=== PATIENT | male | born 1975 | race African-American/Black ===

== ENCOUNTER 2018-05-11 20:44 | Emergency (ER) | payer MEDICAID ==
[~2018-05-11] VITALS: Ht 188 cm; Wt 100.0 kg
[~2018-05-11 20:44] MED LIST: ABILIFY; ALBUTEROL; BENZ1TAB7; DEPSPR; ZIPR20CA2; depakote; geodon
[2018-05-11] MEDS ORDERED: PREDNISONE 20MG TABLET PO ONE (21:15)
[2018-05-11 22:25] VITALS: BP 128/75
== END 2018-05-11 22:58 | disposition home or self-care (01) ==
LOC: ER 20:44
DX: T78.40XA Allergy, unspecified, initial encounter (principal); X58.XXXA Exposure to other specified factors, initial encounter; E78.00 Pure hypercholesterolemia, unspecified; I10 Essential (primary) hypertension; Z88.8 Allergy status to other drugs, medicaments and biological substances
CPT/HCPCS: 99283; J7512

== ENCOUNTER 2018-11-27 21:10 | Emergency (ER) | payer MEDICAID ==
[~2018-11-27] VITALS: Ht 198.1 cm; Wt 123.0 kg
[2018-11-27] MEDS ORDERED: HYDROCODONE/ACETAMINOPHEN 5/325MG TABLET PO ONE (23:00)
[2018-11-28 00:44] VITALS: BP 139/88
== END 2018-11-28 00:45 | disposition home or self-care (01) ==
LOC: ER 21:10
DX: S00.512A Abrasion of oral cavity, initial encounter (principal); R68.84 Jaw pain; S09.92XA Unspecified injury of nose, initial encounter; G40.909 Epilepsy, unspecified, not intractable, without status epilepticus; E78.00 Pure hypercholesterolemia, unspecified; J45.909 Unspecified asthma, uncomplicated; I10 Essential (primary) hypertension; F31.9 Bipolar disorder, unspecified; F17.210 Nicotine dependence, cigarettes, uncomplicated; Z88.8 Allergy status to other drugs, medicaments and biological substances; Y04.0XXA Assault by unarmed brawl or fight, initial encounter; Y93.89 Activity, other specified; Y92.048 Other place in boarding-house as the place of occurrence of the external cause
CPT/HCPCS: 70486; 99284

== ENCOUNTER 2019-02-02 20:40 | Inpatient (IN) | payer BC, MEDICAID ==
[~2019-02-02] VITALS: Ht 198.1 cm; Wt 192.8 kg
[~2019-02-02 20:40] MED LIST changes: -DEPSPR; +DEPSPR PO
[2019-02-02] MEDS ORDERED: MORPHINE SULFATE 4 MG/ML CPJ (NOT FOR IM USE) IV STA (21:26)
[2019-02-02 21:49] LABS: BASOPHILS % 0.9 % (0.0-2.0); EOSINOPHILS % 2.5 % (0.0-5.0); HEMATOCRIT. 45.8 % (42.0-52.0); HEMOGLOBIN. 15.6 g/dL (14.0-18.0); LYMPHOCYTES % 38.8 % (20.0-50.0); MEAN CORPUSCULAR HEMOGLOBIN 28.6 pg (28.0-32.0); MEAN CORPUSCULAR VOLUME 84.2 fL (80.0-94.0); MONOCYTES % 14.2 % (2.0-8.0); NEUTROPHILS % 43.6 % (40.0-76.0); PLATELET 155 x1000/uL (130-400); RED BLOOD CELL COUNT 5.44 mill/uL (4.7-6.1); RED CELL DISTRIBUTION WIDTH 14.5 % (11.6-14.6)
[2019-02-02 21:55] LABS: CLARITY URINE CLEAR (CLEAR); COLOR URINE DARK YELLOW (YELLOW); KETONES URINE TRACE (NEGATIVE); LEUKOCYTE ESTERASE URINE NEGATIVE (NEGATIVE); NITRITE URINE NEGATIVE (NEGATIVE); OCCULT BLOOD URINE NEGATIVE (NEGATIVE); PH URINE 5.5 (4.5-8.0); PROTEIN URINE NEGATIVE (NEGATIVE); SPECIFIC GRAVITY URINE 1.032 (1.005-1.030)
[2019-02-02 21:56] LABS: CHLORIDE 107 mEq/L (98-107)
[2019-02-02 21:58] LABS: PROTHROMBIN TIME 10.3 sec (9.6-11.0)
[2019-02-02] MEDS ORDERED: DIPHENHYDRAMINE 50MG/ML VIAL IV ONE (23:30)
[2019-02-02] MEDS ORDERED: METHYLPREDNISOLONE SOD SUCC 125 MG/2 ML VIAL IV ONE (23:30)
[2019-02-02] MEDS ORDERED: FAMOTIDINE 20MG/2ML VIAL IV ONE (23:30)
[2019-02-03] VITALS (8 sets, daily range): BP systolic 118–141; BP diastolic 64–84
[2019-02-03] MEDS ORDERED: HYDRALAZINE 20MG/ML VIAL IV ONE (01:45)
[2019-02-03] MEDS ORDERED: IPRATROPIUM/ALBUTEROL 0.5-3(2.5)MG/3ML NEB HHN PRN (05:15)
[2019-02-03] MEDS ORDERED: CLONIDINE 0.1MG TABLET PO PRN (05:15)
[2019-02-03] MEDS ORDERED: DIPHENHYDRAMINE 25MG CAPSULE PO PRN (05:15)
[2019-02-03] MEDS: METHYLPREDNISOLONE SOD SUCC 40 MG/ML VIAL IV SCH ×3 (05:55→22:07)
[2019-02-03] MEDS ORDERED: FAMOTIDINE 20MG/2ML VIAL IV SCH (09:00)
[2019-02-03 09:03] LABS: BASOPHILS % 0.3 % (0.0-2.0); EOSINOPHILS % 0.1 % (0.0-5.0); HEMATOCRIT. 47.1 % (42.0-52.0); HEMOGLOBIN. 15.4 g/dL (14.0-18.0); LYMPHOCYTES % 16.2 % (20.0-50.0); MEAN CORPUSCULAR HEMOGLOBIN 27.7 pg (28.0-32.0); MEAN CORPUSCULAR VOLUME 84.6 fL (80.0-94.0); MEAN PLATELET VOLUME 10.1 fl (7.4-10.4); MONOCYTES % 1.1 % (2.0-8.0); NEUTROPHILS % 82.3 % (40.0-76.0); PLATELET 144 x1000/uL (130-400); RED BLOOD CELL COUNT 5.57 mill/uL (4.7-6.1); RED CELL DISTRIBUTION WIDTH 14.5 % (11.6-14.6)
[2019-02-03 09:23] LABS: CHLORIDE 108 mEq/L (98-107)
[2019-02-03 09:32] LABS: LDL CHOLESTEROL 86 mg/dL (5-100)
[2019-02-03 09:34] LABS: HDL CHOLESTEROL 34 mg/dL (40-59)
[2019-02-03 10:32] LABS: HEPATITIS B SURFACE ANTIGEN NEGATIVE
[2019-02-03 11:02] LABS: HEPATITIS A AB IGM NEGATIVE (NEGATIVE)
[2019-02-03] MEDS ORDERED: PNEUMOCOCCAL 23-VAL P-SAC VAC 0.5 ML IM ONE (12:00)
[2019-02-03] MEDS: SUCRALFATE 1 G/10 ML UDC PO SCH ×3 (14:47→22:06)
[2019-02-03] MEDS ORDERED: PANTOPRAZOLE 40MG DR TABLET PO SCH (21:00)
[2019-02-03] MEDS ORDERED: DIVALPROEX SODIUM 1500 MG PO SCH (21:00)
[2019-02-03] MEDS: PANTOPRAZOLE SODIUM 40 MG/VIAL IV SCH (22:05)
[2019-02-03] MEDS: BENZTROPINE MESYLATE 1MG TABLET PO SCH (22:06)
[2019-02-03] MEDS: DIVALPROEX SODIUM 500MG ER TABLET PO SCH (22:07)
[2019-02-04] VITALS: BP 137/77
[2019-02-04 04:00] VITALS: BP 146/86
[2019-02-04 04:13] LABS: *AMPHETAMINES SCREEN URINE NEGATIVE (NEGATIVE); *BARBITURATES SCREEN URINE NEGATIVE (NEGATIVE); *BENZODIAZEPINES SCREEN URINE NEGATIVE (NEGATIVE); *COCAINE SCREEN URINE NEGATIVE (NEGATIVE); CANNABINOID URINE SCREEN NEGATIVE (NEGATIVE); METHADONE URINE SCREEN NEGATIVE (NEGATIVE); OPIATES URINE SCREEN PRESUMTIVE POSITIVE (NEGATIVE); PHENCYCLIDINE URINE SCREEN NEGATIVE (NEGATIVE)
[2019-02-04] MEDS: METHYLPREDNISOLONE SOD SUCC 40 MG/ML VIAL IV SCH ×2 (06:00→15:59)
[2019-02-04] MEDS: SUCRALFATE 1 G/10 ML UDC PO SCH ×4 (06:18→20:32)
[2019-02-04 07:39] LABS: BASOPHILS % 0.2 % (0.0-2.0); HEMATOCRIT. 42.4 % (42.0-52.0); HEMOGLOBIN. 13.8 g/dL (14.0-18.0); MEAN CORPUSCULAR HEMOGLOBIN 27.2 pg (28.0-32.0); MEAN CORPUSCULAR VOLUME 83.5 fL (80.0-94.0); MEAN PLATELET VOLUME 10.3 fl (7.4-10.4); MONOCYTES % 4.9 % (2.0-8.0); NEUTROPHILS % 84.9 % (40.0-76.0); PLATELET 171 x1000/uL (130-400); RED BLOOD CELL COUNT 5.08 mill/uL (4.7-6.1); RED CELL DISTRIBUTION WIDTH 14.9 % (11.6-14.6)
[2019-02-04 07:47] LABS: PARTIAL THROMBOPLASTIN TIME 24.7 sec (23.4-31.0); PROTHROMBIN TIME 10.7 sec (9.6-11.0)
[2019-02-04 07:52] LABS: CHLORIDE 105 mEq/L (98-107)
[2019-02-04 07:55] VITALS: BP 156/74
[2019-02-04] MEDS: PANTOPRAZOLE SODIUM 40 MG/VIAL IV SCH ×2 (08:42→20:32)
[2019-02-04] MEDS ORDERED: MIDAZOLAM HCL 5 MG/5 ML VIAL ONE (11:21)
[2019-02-04] MEDS ORDERED: MIDAZOLAM HCL 5 MG/5 ML VIAL IV PRN (11:22)
[2019-02-04] MEDS ORDERED: FENTANYL CITRATE/PF 50MCG/ML 2ML VIAL ONE ×2 (11:23→11:29)
[2019-02-04] MEDS ORDERED: FENTANYL CITRATE/PF 50MCG/ML 2ML VIAL IV PRN (11:24)
[2019-02-04] MEDS ORDERED: EPINEPHRINE 0.1MG/ML (1:10,000) 10ML SYR ONE (11:28)
[2019-02-04] MEDS ORDERED: SIMETHICONE 40 MG/0.6 ML 30ML ONE (11:57)
[2019-02-04] MEDS ORDERED: SUCRALFATE 1 G/10 ML UDC PO SCH (12:20)
[2019-02-04 12:30] VITALS: BP 150/90
[2019-02-04] MEDS ORDERED: BACTERIOSTATIC SODIUM CHLORIDE 0.9% 30ML VIAL IJ ONE (12:55)
[2019-02-04 16:21] VITALS: BP 142/78
[2019-02-04 20:00] VITALS: BP 135/85
[2019-02-04] MEDS: BENZTROPINE MESYLATE 1MG TABLET PO SCH (20:32)
[2019-02-04] MEDS: DIVALPROEX SODIUM 500MG ER TABLET PO SCH (20:32)
[2019-02-04 21:00] LABS: HEMATOCRIT 42.5 % (42.0-52.0)
[2019-02-05] VITALS: BP 155/86
[2019-02-05 01:37] LABS: HEMATOCRIT 43.3 % (42.0-52.0); HEMOGLOBIN 14.3 g/dL (14.0-18.0)
[2019-02-05 04:00] VITALS: BP 139/81
[2019-02-05 05:56] LABS: BASOPHILS % 0.5 % (0.0-2.0); HEMATOCRIT. 42.9 % (42.0-52.0); HEMOGLOBIN. 14.3 g/dL (14.0-18.0); LYMPHOCYTES % 10.8 % (20.0-50.0); MEAN CORPUSCULAR HEMOGLOBIN 27.6 pg (28.0-32.0); MEAN PLATELET VOLUME 10.5 fl (7.4-10.4); MONOCYTES % 7.1 % (2.0-8.0); NEUTROPHILS % 81.6 % (40.0-76.0); PLATELET 171 x1000/uL (130-400); RED BLOOD CELL COUNT 5.16 mill/uL (4.7-6.1); RED CELL DISTRIBUTION WIDTH 14.8 % (11.6-14.6)
[2019-02-05 06:10] LABS: CHLORIDE 102 mEq/L (98-107)
[2019-02-05] MEDS: SUCRALFATE 1 G/10 ML UDC PO SCH ×3 (06:22→17:24)
[2019-02-05 08:00] VITALS: BP 156/74
[2019-02-05 11:30] LABS: HEMATOCRIT 44.4 % (42.0-52.0); HEMOGLOBIN 14.6 g/dL (14.0-18.0)
[2019-02-05 12:30] VITALS: BP 144/90
[2019-02-05] MEDS ORDERED: SUCR1TAB30 MT (14:24)
[2019-02-05] MEDS ORDERED: PANT40TA4 MT (14:24)
[2019-02-05 15:30] VITALS: BP 134/92
[2019-02-05 16:00] VITALS: BP 134/92
== END 2019-02-05 19:08 | disposition home or self-care (01) | DRG 241 ==
LOC: ER 20:40 → 6WST 02-03 00:34 → ENRESERV 02-03 01:09
PROVIDERS: ADMIT Internal Medicine; ATTEND Internal Medicine
PROC: 0DB68ZZ Excision of Stomach, Via Natural or Artificial Opening Endoscopic (ICD-10-PCS; principal; 2019-02-04)
PROC: 0W3P8ZZ Control Bleeding in Gastrointestinal Tract, Via Natural or Artificial Opening Endoscopic (ICD-10-PCS; 2019-02-04)
PROC: 0DB68ZX Excision of Stomach, Via Natural or Artificial Opening Endoscopic, Diagnostic (ICD-10-PCS; 2019-02-04)
DX: K29.71 Gastritis, unspecified, with bleeding (principal); E11.65 Type 2 diabetes mellitus with hyperglycemia; E66.9 Obesity, unspecified; E78.00 Pure hypercholesterolemia, unspecified; J45.909 Unspecified asthma, uncomplicated; J33.8 Other polyp of sinus; F31.9 Bipolar disorder, unspecified; G40.909 Epilepsy, unspecified, not intractable, without status epilepticus; R74.0 Nonspecific elevation of levels of transaminase and lactic acid dehydrogenase [LDH]; I10 Essential (primary) hypertension; Z82.49 Family history of ischemic heart disease and other diseases of the circulatory system; Z82.5 Family history of asthma and other chronic lower respiratory diseases; Z71.3 Dietary counseling and surveillance; Z68.42 Body mass index [BMI] 45.0-49.9, adult
CPT/HCPCS: 36415; 71045; 74176; 76700; 80048; 80061; 80076; 80165; 80305; 81003; 82248; 83036; 83735; 83880; 84145; 85014; 85018; 86705; 86709; 86803; 87340; 88305; 88313; 90732; 93306; 93970; 96374; 99152; 99285; C9113; J0360; J1200; J2250; J2270; J2920; J2930; J3010; J3490; G0500

== ENCOUNTER 2019-02-06 22:46 | Emergency (ER) | payer MEDICAID ==
[~2019-02-06] VITALS: Ht 198.1 cm; Wt 160.0 kg
[~2019-02-06 22:46] MED LIST changes: -ABILIFY; -ALBUTEROL; +PANT40TA4 MT; +SUCR1TAB30 MT; -ZIPR20CA2; -depakote; -geodon
[2019-02-07] MEDS ORDERED: ONDANSETRON HCL 4MG/2ML INJ IV ONE (01:00)
[2019-02-07] MEDS ORDERED: FAMOTIDINE 20MG/2ML VIAL IV SCH (01:00)
[2019-02-07] MEDS ORDERED: SODIUM CHLORIDE 0.9% 1,000 ML IV ONE (01:00)
[2019-02-07 01:08] LABS: HEMATOCRIT. 44.7 % (42.0-52.0); HEMOGLOBIN. 14.9 g/dL (14.0-18.0); MEAN CORPUSCULAR HEMOGLOBIN 27.7 pg (28.0-32.0); MEAN CORPUSCULAR VOLUME 83.1 fL (80.0-94.0); MEAN PLATELET VOLUME 9.3 fl (7.4-10.4); PLATELET 167 x1000/uL (130-400); RED BLOOD CELL COUNT 5.37 mill/uL (4.7-6.1); RED CELL DISTRIBUTION WIDTH 14.3 % (11.6-14.6)
[2019-02-07 01:14] LABS: CHLORIDE 105 mEq/L (98-107)
[2019-02-07 02:03] LABS: ATYPICAL LYMPHOCYTES 4; PLATELET ESTIMATE NORMAL
[2019-02-07 03:17] LABS: CLARITY URINE CLEAR (CLEAR); COLOR URINE YELLOW (YELLOW); KETONES URINE TRACE (NEGATIVE); LEUKOCYTE ESTERASE URINE NEGATIVE (NEGATIVE); NITRITE URINE NEGATIVE (NEGATIVE); OCCULT BLOOD URINE NEGATIVE (NEGATIVE); PROTEIN URINE NEGATIVE (NEGATIVE); SPECIFIC GRAVITY URINE 1.027 (1.005-1.030)
[2019-02-07 05:00] VITALS: BP 139/73
== END 2019-02-07 04:50 | disposition home or self-care (01) ==
LOC: ER 22:46
DX: R10.84 Generalized abdominal pain (principal); J45.909 Unspecified asthma, uncomplicated; Z79.899 Other long term (current) drug therapy; Z88.4 Allergy status to anesthetic agent
CPT/HCPCS: 36415; 80053; 81003; 85025; 96361; 96374; 96375; 99283; J2405; J3490; J7030; J7040; Z7610

== ENCOUNTER 2019-03-21 10:48 | Emergency (ER) | payer MEDICAID ==
[~2019-03-21] VITALS: Ht 198.1 cm; Wt 160.0 kg
[~2019-03-21 10:48] MED LIST changes: +AMLO5TAB88 PO; -DEPSPR PO; +VALP250C PO
[2019-03-21 12:22] LABS: CLARITY URINE CLEAR (CLEAR); COLOR URINE YELLOW (YELLOW); KETONES URINE TRACE (NEGATIVE); LEUKOCYTE ESTERASE URINE NEGATIVE (NEGATIVE); NITRITE URINE NEGATIVE (NEGATIVE); OCCULT BLOOD URINE NEGATIVE (NEGATIVE); PH URINE 5.5 (4.5-8.0); PROTEIN URINE NEGATIVE (NEGATIVE); SPECIFIC GRAVITY URINE 1.027 (1.005-1.030)
[2019-03-21] MEDS ORDERED: ACETAMINOPHEN 325MG TABLET PO ONE (12:30)
[2019-03-21] MEDS ORDERED: KETOROLAC 15MG/ML VIAL IM ONE (12:30)
[2019-03-21 12:47] LABS: *AMPHETAMINES SCREEN URINE NEGATIVE (NEGATIVE); *BARBITURATES SCREEN URINE NEGATIVE (NEGATIVE); *BENZODIAZEPINES SCREEN URINE NEGATIVE (NEGATIVE)
[2019-03-21 12:48] LABS: *COCAINE SCREEN URINE NEGATIVE (NEGATIVE); CANNABINOID URINE SCREEN NEGATIVE (NEGATIVE); OPIATES URINE SCREEN NEGATIVE (NEGATIVE); PHENCYCLIDINE URINE SCREEN NEGATIVE (NEGATIVE)
[2019-03-21 12:51] LABS: METHADONE URINE SCREEN NEGATIVE (NEGATIVE)
[2019-03-21 12:52] LABS: BASOPHILS % 0.7 % (0.0-2.0); EOSINOPHILS % 0.8 % (0.0-5.0); HEMATOCRIT. 43.7 % (42.0-52.0); HEMOGLOBIN. 14.5 g/dL (14.0-18.0); LYMPHOCYTES % 27.7 % (20.0-50.0); MEAN CORPUSCULAR HEMOGLOBIN 27.9 pg (28.0-32.0); MEAN CORPUSCULAR VOLUME 84.2 fL (80.0-94.0); MEAN PLATELET VOLUME 9.8 fl (7.4-10.4); MONOCYTES % 13.9 % (2.0-8.0); NEUTROPHILS % 56.9 % (40.0-76.0); PLATELET 157 x1000/uL (130-400); RED BLOOD CELL COUNT 5.19 mill/uL (4.7-6.1)
[2019-03-21 12:58] LABS: CHLORIDE 110 mEq/L (98-107)
[2019-03-21 13:02] LABS: ETHANOL BLOOD < 10 mg/dL
[2019-03-22 15:30] VITALS: BP 154/97
== END 2019-03-22 18:58 | disposition home or self-care (01) ==
LOC: ER 10:48
DX: S16.1XXA Strain of muscle, fascia and tendon at neck level, initial encounter (principal); R45.851 Suicidal ideations; J45.909 Unspecified asthma, uncomplicated; I10 Essential (primary) hypertension; F31.9 Bipolar disorder, unspecified; F20.9 Schizophrenia, unspecified; E66.01 Morbid (severe) obesity due to excess calories; Z68.41 Body mass index [BMI] 40.0-44.9, adult; Z88.4 Allergy status to anesthetic agent; Z88.8 Allergy status to other drugs, medicaments and biological substances; Z79.899 Other long term (current) drug therapy; Z98.890 Other specified postprocedural states; Y08.89XA Assault by other specified means, initial encounter; Y93.89 Activity, other specified; Y92.89 Other specified places as the place of occurrence of the external cause; Y99.8 Other external cause status
CPT/HCPCS: 36415; 80053; 80305; 80307; 80320; 81003; 82962; 85025; 96372; 99284; J1885; G0480

== ENCOUNTER 2020-10-05 08:35 | Emergency (ER) | payer SELFPAY ==
[~2020-10-05] VITALS: Ht 180.3 cm; Wt 127.0 kg
[~2020-10-05 08:35] MED LIST changes: -PANT40TA4 MT; +PANT40TA51 MT
[2020-10-05] MEDS ORDERED: LEVETIRACETAM 1000MG PREMIX 100 ML IV ONE (09:00)
[2020-10-05] MEDS ORDERED: SODIUM CHLORIDE 0.9% 1,000 ML IV ONE (09:00)
[2020-10-05 09:40] LABS: HEMATOCRIT. 42.3 % (42.0-52.0); HEMOGLOBIN. 14.6 g/dL (14.0-18.0); MEAN CORPUSCULAR HEMOGLOBIN 28.7 pg (28.0-32.0); MEAN CORPUSCULAR VOLUME 83.2 fL (80.0-94.0); MEAN PLATELET VOLUME 9.8 fl (7.4-10.4); PLATELET 145 x1000/uL (130-400); RED BLOOD CELL COUNT 5.09 mill/uL (4.7-6.1); RED CELL DISTRIBUTION WIDTH 14.4 % (11.6-14.6)
[2020-10-05 09:41] LABS: CHLORIDE 112 mEq/L (98-107)
[2020-10-05 09:47] LABS: ETHANOL BLOOD < 10 mg/dL
[2020-10-05 09:50] LABS: VALPROIC ACID <3.0 ug/mL ug/mL (50-100)
[2020-10-05 09:53] LABS: CLARITY URINE CLEAR (CLEAR); COLOR URINE YELLOW (YELLOW); KETONES URINE TRACE (NEGATIVE); LEUKOCYTE ESTERASE URINE NEGATIVE (NEGATIVE); NITRITE URINE NEGATIVE (NEGATIVE); OCCULT BLOOD URINE NEGATIVE (NEGATIVE); PH URINE 6.5 (4.5-8.0); PROTEIN URINE NEGATIVE (NEGATIVE); SPECIFIC GRAVITY URINE 1.024 (1.005-1.030)
[2020-10-05 10:12] LABS: *AMPHETAMINES SCREEN URINE NEGATIVE (NEGATIVE); *BARBITURATES SCREEN URINE NEGATIVE (NEGATIVE); *BENZODIAZEPINES SCREEN URINE NEGATIVE (NEGATIVE); METHADONE URINE SCREEN NEGATIVE (NEGATIVE); OPIATES URINE SCREEN NEGATIVE (NEGATIVE)
[2020-10-05 10:13] LABS: CANNABINOID URINE SCREEN NEGATIVE (NEGATIVE); PHENCYCLIDINE URINE SCREEN NEGATIVE (NEGATIVE)
[2020-10-05 10:14] LABS: *COCAINE SCREEN URINE NEGATIVE (NEGATIVE)
[2020-10-05] MEDS ORDERED: DIVA500T3 MT (11:44)
[2020-10-05] MEDS ORDERED: DIVALPROEX SODIUM 500MG DR TABLET PO ONE (11:45)
[2020-10-05 11:49] LABS: PLATELET ESTIMATE NORMAL
[2020-10-05 11:50] VITALS: BP 143/81
== END 2020-10-05 12:20 | disposition home or self-care (01) ==
LOC: ER 08:35
DX: R56.9 Unspecified convulsions (principal); R79.89 Other specified abnormal findings of blood chemistry; J45.909 Unspecified asthma, uncomplicated; E11.9 Type 2 diabetes mellitus without complications; Z88.1 Allergy status to other antibiotic agents; Z88.8 Allergy status to other drugs, medicaments and biological substances; Z91.19 Patient's noncompliance with other medical treatment and regimen
CPT/HCPCS: 36415; 70450; 72125; 80053; 80165; 80305; 80320; 81003; 85025; 93005; 96365; 99285; J1953; J7030; G0480

== ENCOUNTER 2021-01-06 22:42 | Emergency (ER) | payer SELFPAY ==
[~2021-01-06] VITALS: Ht 198.1 cm; Wt 154.0 kg
[~2021-01-06 22:42] MED LIST changes: +DIVA500T3 MT
[2021-01-07] MEDS ORDERED: ONDANSETRON 4MG ODT PO STA (01:15)
[2021-01-07 01:28] LABS: BASOPHILS % 0.9 % (0.0-2.0); EOSINOPHILS % 2.7 % (0.0-5.0); HEMOGLOBIN. 15.2 g/dL (14.0-18.0); LYMPHOCYTES % 45.2 % (20.0-50.0); MEAN CORPUSCULAR HEMOGLOBIN 29.1 pg (28.0-32.0); MEAN CORPUSCULAR VOLUME 84.1 fL (80.0-94.0); MEAN PLATELET VOLUME 9.4 fl (7.4-10.4); MONOCYTES % 10.2 % (2.0-8.0); PLATELET 160 x1000/uL (130-400); RED BLOOD CELL COUNT 5.23 mill/uL (4.7-6.1); RED CELL DISTRIBUTION WIDTH 13.6 % (11.6-14.6)
[2021-01-07 01:54] LABS: CHLORIDE 107 mEq/L (98-107)
[2021-01-07 02:58] VITALS: BP 147/82
== END 2021-01-07 03:05 | disposition home or self-care (01) ==
LOC: ER 22:42
DX: R19.7 Diarrhea, unspecified (principal); R74.8 Abnormal levels of other serum enzymes; J45.909 Unspecified asthma, uncomplicated; I10 Essential (primary) hypertension; Z79.899 Other long term (current) drug therapy; Z88.4 Allergy status to anesthetic agent; Z88.8 Allergy status to other drugs, medicaments and biological substances; Z86.59 Personal history of other mental and behavioral disorders
CPT/HCPCS: 36415; 80053; 83690; 85025; 99283; Q0162

== ENCOUNTER 2021-03-13 11:48 | Emergency (ER) | payer MEDICAID ==
[~2021-03-13] VITALS: Ht 198.1 cm; Wt 155.0 kg
[2021-03-13 12:15] VITALS: BP 159/103
[2021-03-13] MEDS ORDERED: ACETAMINOPHEN 325MG TABLET PO ONE (13:00)
[2021-03-13] MEDS ORDERED: IBUPROFEN 600MG TABLET PO ONE (13:00)
[2021-03-13] MEDS ORDERED: NAPR-1176 MT (14:52)
== END 2021-03-13 17:24 | disposition home or self-care (01) ==
LOC: ER 11:48
DX: M25.571 Pain in right ankle and joints of right foot (principal); M79.671 Pain in right foot; J45.909 Unspecified asthma, uncomplicated; F31.9 Bipolar disorder, unspecified; I10 Essential (primary) hypertension; R56.9 Unspecified convulsions; W01.0XXA Fall on same level from slipping, tripping and stumbling without subsequent striking against object, initial encounter; Y93.01 Activity, walking, marching and hiking; Y92.9 Unspecified place or not applicable; Z88.1 Allergy status to other antibiotic agents; Z88.8 Allergy status to other drugs, medicaments and biological substances
CPT/HCPCS: 73610; 73630; 99284; Z7610

== ENCOUNTER 2021-04-04 13:59 | Emergency (ER) | payer SELFPAY ==
[~2021-04-04] VITALS: Ht 198.1 cm; Wt 156.0 kg
[~2021-04-04 13:59] MED LIST changes: +NAPR-1176 MT
[2021-04-04 14:05] VITALS: BP 165/81
[2021-04-04] MEDS ORDERED: SULF1TAB48 MT (14:28)
[2021-04-04] MEDS ORDERED: CEPH500C2 MT (14:28)
== END 2021-04-04 15:31 | disposition home or self-care (01) ==
LOC: ER 13:59
DX: S80.811A Abrasion, right lower leg, initial encounter (principal); I10 Essential (primary) hypertension; Z86.59 Personal history of other mental and behavioral disorders; Z79.899 Other long term (current) drug therapy; W26.1XXA Contact with sword or dagger, initial encounter; Y93.89 Activity, other specified; Y92.89 Other specified places as the place of occurrence of the external cause; Y99.8 Other external cause status
CPT/HCPCS: 99283

== ENCOUNTER 2021-06-02 10:44 | Emergency (ER) | payer MEDICAID ==
[~2021-06-02] VITALS: Ht 198.1 cm; Wt 164.0 kg
[~2021-06-02 10:44] MED LIST changes: +CEPH500C2 MT; +SULF1TAB48 MT
[2021-06-02] MEDS ORDERED: IPRATROPIUM BROMIDE (0.02%) 0.5MG/2.5ML NEB HHN STA (11:36)
[2021-06-02] MEDS: ALBUTEROL (0.083%) 2.5MG/3ML NEB HHN SCH ×3 (12:00→13:00)
[2021-06-02 12:19] LABS: BASOPHILS % 1.3 % (0.0-2.0); EOSINOPHILS % 2.2 % (0.0-5.0); HEMATOCRIT. 43.1 % (42.0-52.0); HEMOGLOBIN. 14.4 g/dL (14.0-18.0); MEAN CORPUSCULAR HEMOGLOBIN 28.8 pg (28.0-32.0); MEAN CORPUSCULAR VOLUME 86.5 fL (80.0-94.0); MEAN PLATELET VOLUME 9.5 fl (7.4-10.4); MONOCYTES % 11.7 % (2.0-8.0); NEUTROPHILS % 57.8 % (40.0-76.0); PLATELET 137 x1000/uL (130-400); RED BLOOD CELL COUNT 4.98 mill/uL (4.7-6.1)
[2021-06-02] MEDS ORDERED: ALBUTEROL 6.7GM HFA INHALER ORI ONE (12:30)
[2021-06-02 12:36] LABS: CHLORIDE 106 mEq/L (98-107)
[2021-06-02 12:40] LABS: ETHANOL BLOOD < 10 mg/dL
[2021-06-02 12:50] LABS: VALPROIC ACID < 3.0 ug/mL (50-100)
[2021-06-02] MEDS ORDERED: KETOROLAC 60MG/2ML VIAL IM ONE (16:30)
[2021-06-02 17:25] VITALS: BP 145/83
== END 2021-06-02 17:26 | disposition home or self-care (01) ==
LOC: ER 10:44
DX: T42.6X2A Poisoning by other antiepileptic and sedative-hypnotic drugs, intentional self-harm, initial encounter (principal); B34.9 Viral infection, unspecified; G40.909 Epilepsy, unspecified, not intractable, without status epilepticus; F31.9 Bipolar disorder, unspecified; J45.909 Unspecified asthma, uncomplicated; Z20.822 Contact with and (suspected) exposure to COVID-19; Z88.8 Allergy status to other drugs, medicaments and biological substances; Y92.018 Other place in single-family (private) house as the place of occurrence of the external cause
CPT/HCPCS: 36415; 80053; 80165; 80307; 80320; 80329; 82140; 85025; 87426; 93005; 99284; J1885; G0480

== ENCOUNTER 2022-02-10 15:13 | Emergency (ER) | payer MEDICAID ==
[~2022-02-10] VITALS: Ht 182.9 cm; Wt 136.5 kg
[2022-02-10] MEDS ORDERED: DILANTIN (15:19)
[2022-02-10] MEDS ORDERED: METOCLOPRAMIDE HCL 10MG TABLET PO ONE (18:45)
[2022-02-10] MEDS ORDERED: IBUPROFEN 400MG TABLET PO ONE (18:45)
[2022-02-10] MEDS ORDERED: ACETAMINOPHEN 325MG TABLET PO ONE (18:45)
[2022-02-10 19:00] VITALS: BP 162/90
== END 2022-02-10 20:11 | disposition home or self-care (01) ==
LOC: ER 15:13
DX: R51.9 Headache, unspecified (principal); I10 Essential (primary) hypertension; Z88.4 Allergy status to anesthetic agent; Z88.8 Allergy status to other drugs, medicaments and biological substances; Z79.899 Other long term (current) drug therapy; Z86.59 Personal history of other mental and behavioral disorders
CPT/HCPCS: 99284; J8597

== ENCOUNTER 2022-04-06 00:45 | Emergency (ER) | payer MEDICAID ==
[~2022-04-06] VITALS: Ht 190.5 cm; Wt 110.0 kg
[~2022-04-06 00:45] MED LIST changes: +DILANTIN
[2022-04-06 00:57] VITALS: BP 157/90
[2022-04-06] MEDS ORDERED: PREDNISONE 20MG TABLET PO ONE (01:00)
[2022-04-06] MEDS ORDERED: IPRATROPIUM/ALBUTEROL 0.5-3(2.5)MG/3ML NEB HHN ONE ×2 (01:00)
[2022-04-06] MEDS ORDERED: P20 MT (02:42)
[2022-04-06] MEDS ORDERED: [UNRECOGNIZED DRUG - CODE] HHN (02:42)
[2022-04-06] MEDS ORDERED: ALBU2.5V13 NEB (02:42)
[2022-04-06] MEDS ORDERED: ALBU6.7H3 INH (02:42)
[2022-04-06] MEDS ORDERED: NIRM1TAB PO (02:42)
== END 2022-04-06 03:23 | disposition home or self-care (01) ==
LOC: ER 00:45
DX: U07.1 COVID-19 (principal); J45.901 Unspecified asthma with (acute) exacerbation; I10 Essential (primary) hypertension; G40.909 Epilepsy, unspecified, not intractable, without status epilepticus; Z88.8 Allergy status to other drugs, medicaments and biological substances; Z88.5 Allergy status to narcotic agent
CPT/HCPCS: 71045; 99283; J7512; Z7610

== ENCOUNTER 2023-02-03 08:26 | Emergency (ER) | payer MEDICAID, OTHER ==
[~2023-02-03] VITALS: Ht 185.4 cm; Wt 182.0 kg
[~2023-02-03 08:26] MED LIST changes: +ALBU2.5V13 NEB; +ALBU6.7H3 INH; -BENZ1TAB7; +BENZ1TAB79; +NIRM1TAB PO; +P20 MT; +[UNRECOGNIZED DRUG - CODE] HHN
[2023-02-03] MEDS ORDERED: LORAZEPAM 2MG/ML CPJ IM STA (10:12)
[2023-02-03] MEDS ORDERED: OLANZAPINE 10 MG/VIAL IM ONE (10:15)
[2023-02-03 10:48] VITALS: O2SAT 99
[2023-02-03 11:16] LABS: BASOPHILS % 1.2 % (0.0-2.0); HEMATOCRIT. 40.8 % (42.0-52.0); HEMOGLOBIN. 13.8 g/dL (14.0-18.0); LYMPHOCYTES % 40.7 % (20.0-50.0); MEAN CORPUSCULAR HEMOGLOBIN 28.6 pg (28.0-32.0); MEAN CORPUSCULAR HGB CONC 33.8 g/dL (31.0-37.0); MEAN CORPUSCULAR VOLUME 84.8 fL (80.0-94.0); MEAN PLATELET VOLUME 9.9 fl (7.4-10.4); MONOCYTES % 11.2 % (2.0-8.0); NEUTROPHILS % 45.9 % (40.0-76.0); PLATELET 143 x1000/uL (130-400); RED BLOOD CELL COUNT 4.81 mill/uL (4.7-6.1); WHITE BLOOD COUNT 6.2 x1000/uL (4.5-11.0)
[2023-02-03 11:21] LABS: CLARITY URINE CLEAR (CLEAR); COLOR URINE YELLOW (YELLOW); GLUCOSE URINE NEGATIVE (NEGATIVE); KETONES URINE TRACE (NEGATIVE); LEUKOCYTE ESTERASE URINE NEGATIVE (NEGATIVE); NITRITE URINE NEGATIVE (NEGATIVE); OCCULT BLOOD URINE NEGATIVE (NEGATIVE); PH URINE 5.5 (4.5-8.0); PROTEIN URINE TRACE (NEGATIVE); SPECIFIC GRAVITY URINE 1.027 (1.005-1.030)
[2023-02-03 11:24] LABS: BACTERIA URINE NONE SEEN; RBC URINE NONE SEEN /hpf (0-2); WBC URINE NONE SEEN /hpf (0-2); YEAST URINE NONE SEEN
[2023-02-03 11:40] LABS: FINE GRANULAR CASTS URINE 0-5 /lpf; HYALINE CASTS URINE 0-5 /lpf; MUCUS URINE 2+ /lpf (NONE/TRACE); SQUAMOUS EPITHELIAL CELL URINE FEW /lpf (RARE/1+)
[2023-02-03 12:09] LABS: CHLORIDE 109 mEq/L (98-107); INDEX HEMOLYSI 1 (1-3); INDEX ICTERIC 1 (1-4); INDEX LIPEMIC 1 (1-3); POTASSIUM 3.8 mEq/L (3.5-5.1); SODIUM 139 mEq/L (136-145)
[2023-02-03 12:31] LABS: *AMPHETAMINES SCREEN URINE NEGATIVE (NEGATIVE); *BARBITURATES SCREEN URINE NEGATIVE (NEGATIVE); *BENZODIAZEPINES SCREEN URINE NEGATIVE (NEGATIVE); *COCAINE SCREEN URINE NEGATIVE (NEGATIVE); CANNABINOID URINE SCREEN NEGATIVE (NEGATIVE); ECSTASY MDMA SCREEN URINE NEGATIVE (NEGATIVE); OPIATES URINE SCREEN NEGATIVE (NEGATIVE); PHENCYCLIDINE URINE SCREEN NEGATIVE (NEGATIVE)
[2023-02-03 12:52] LABS: ACETAMINOPHEN <2 ug/mL ug/mL (10-30); ALANINE AMINOTRANSFERASE 75 IU/L (13-61); ALBUMIN 3.3 g/dL (3.4-5.0); ASPARTATE AMINOTRANSFERASE 45 IU/L (15-37); BILIRUBIN TOTAL 0.8 mg/dL (0.1-1.0); CARBON DIOXIDE 26 mEq/L (21-32); CREATININE 0.9 mg/dL (0.6-1.3); ETHANOL BLOOD < 10 mg/dL (<10); GLUCOSE 113 mg/dL (70-105); PROTEIN TOTAL 7.5 g/dL (6.0-8.3); UREA NITROGEN BLOOD 12 mg/dL (7-21)
[2023-02-03] MEDS ORDERED: HALOPERIDOL LACTATE 5MG/ML VIAL IM NR (18:41)
[2023-02-03] MEDS: DIPHENHYDRAMINE 50MG/ML VIAL IM NR ×2 (19:18→19:23)
[2023-02-05 07:59] VITALS: BP 142/86; PULSE 88; RESP 16; TEMP 98.6
[2023-02-05 08:29] LABS: BASOPHILS % 1.1 % (0.0-2.0); EOSINOPHILS % 2.5 % (0.0-5.0); HEMATOCRIT. 44.1 % (42.0-52.0); HEMOGLOBIN. 14.8 g/dL (14.0-18.0); LYMPHOCYTES % 43.5 % (20.0-50.0); MEAN CORPUSCULAR HEMOGLOBIN 28.7 pg (28.0-32.0); MEAN CORPUSCULAR HGB CONC 33.6 g/dL (31.0-37.0); MEAN CORPUSCULAR VOLUME 85.3 fL (80.0-94.0); MEAN PLATELET VOLUME 9.7 fl (7.4-10.4); NEUTROPHILS % 40.9 % (40.0-76.0); PLATELET 128 x1000/uL (130-400); RED BLOOD CELL COUNT 5.17 mill/uL (4.7-6.1); RED CELL DISTRIBUTION WIDTH 13.9 % (11.6-14.6); WHITE BLOOD COUNT 4.7 x1000/uL (4.5-11.0)
[2023-02-05 08:43] LABS: INDEX HEMOLYSI 3 (1-3); INDEX ICTERIC 1 (1-4); INDEX LIPEMIC 1 (1-3)
[2023-02-05 08:50] LABS: ALANINE AMINOTRANSFERASE 62 IU/L (13-61); ALBUMIN 3.2 g/dL (3.4-5.0); ASPARTATE AMINOTRANSFERASE 47 IU/L (15-37); BILIRUBIN TOTAL 0.7 mg/dL (0.1-1.0); CALCIUM 8.3 mg/dL (8.5-10.1); CARBON DIOXIDE 30 mEq/L (21-32); CHLORIDE 105 mEq/L (98-107); CREATININE 0.8 mg/dL (0.6-1.3); GLUCOSE 102 mg/dL (70-105); POTASSIUM 4.2 mEq/L (3.5-5.1); PROTEIN TOTAL 7.4 g/dL (6.0-8.3); SODIUM 140 mEq/L (136-145); UREA NITROGEN BLOOD 11 mg/dL (7-21)
[2023-02-05] MEDS ORDERED: LORAZEPAM 2MG/ML CPJ IM ONE (10:00)
[2023-02-05] MEDS ORDERED: HALOPERIDOL LACTATE 5MG/ML VIAL IM ONE (10:00)
== END 2023-02-05 12:22 | disposition left against medical advice (07) ==
LOC: ER 08:26
DX: R45.851 Suicidal ideations (principal); J45.909 Unspecified asthma, uncomplicated; Z20.822 Contact with and (suspected) exposure to COVID-19; Z88.4 Allergy status to anesthetic agent; Z88.8 Allergy status to other drugs, medicaments and biological substances; Z79.899 Other long term (current) drug therapy; Z86.59 Personal history of other mental and behavioral disorders
CPT/HCPCS: 80053 ×2; 80305; 81003; 80307; 80329; 80320; 80165 ×2; 85025 ×2; 36415 ×2; 93005; 96372; 99285; 87426; J3490; J1200; J1630; J2060; C9803; Z7610 ×4; G0480

== ENCOUNTER 2023-04-04 14:58 | Emergency (ER) | payer OTHER ==
[~2023-04-04] VITALS: Ht 198.1 cm; Wt 163.0 kg
[2023-04-04 15:04] VITALS: O2SAT 95
[2023-04-04] MEDS ORDERED: KETOROLAC 30MG/ML VIAL IM ONE (15:30)
[2023-04-04] MEDS ORDERED: METH-653 MT (16:43)
[2023-04-04] MEDS ORDERED: IBUP-2029 MT (16:43)
[2023-04-04 18:04] VITALS: BP 143/86
[2023-04-04 18:10] VITALS: PULSE 90; RESP 18; TEMP 98.2
== END 2023-04-04 18:11 | disposition home or self-care (01) ==
LOC: ER 14:58
DX: M54.41 Lumbago with sciatica, right side (principal); J45.909 Unspecified asthma, uncomplicated; F31.9 Bipolar disorder, unspecified; I10 Essential (primary) hypertension; Z79.899 Other long term (current) drug therapy
CPT/HCPCS: 96372; 99283; J1885; Z7610

== ENCOUNTER 2023-07-02 19:06 | Emergency (ER) | payer MEDICAID, OTHER ==
[~2023-07-02] VITALS: Ht 195.6 cm; Wt 124.0 kg
[~2023-07-02 19:06] MED LIST changes: +IBUP-2029 MT; +METH-653 MT
[2023-07-02 19:19] VITALS: O2SAT 95
[2023-07-02] MEDS ORDERED: ACET-2708 MT (20:11)
[2023-07-02 20:30] VITALS: BP 177/116; PULSE 87; RESP 16
[2023-07-02 20:35] VITALS: TEMP 98.2
[2023-07-02] MEDS: ACETAMINOPHEN 325MG TABLET PO ONE (20:35)
== END 2023-07-02 20:36 | disposition home or self-care (01) ==
LOC: ER 19:06
DX: M25.521 Pain in right elbow (principal); J45.909 Unspecified asthma, uncomplicated; I10 Essential (primary) hypertension; Z68.30 Body mass index [BMI] 30.0-30.9, adult; Z88.4 Allergy status to anesthetic agent; Z88.8 Allergy status to other drugs, medicaments and biological substances; Z79.899 Other long term (current) drug therapy; Z98.890 Other specified postprocedural states; Z86.59 Personal history of other mental and behavioral disorders
CPT/HCPCS: 73080; 99283

== ENCOUNTER 2023-08-20 17:08 | Emergency (ER) | payer OTHER ==
[~2023-08-20] VITALS: Ht 198.1 cm; Wt 218.0 kg
[~2023-08-20 17:08] MED LIST changes: +ACET-2708 MT
[2023-08-20 17:18] VITALS: BP 182/101; PULSE 113; RESP 18; TEMP 98; O2SAT 97
[2023-08-20] MEDS ORDERED: CEPH500T MT (20:56)
[2023-08-20] MEDS ORDERED: NAPR-681 MT (20:56)
== END 2023-08-20 21:53 | disposition home or self-care (01) ==
LOC: ER 17:08
DX: S90.852A Superficial foreign body, left foot, initial encounter (principal); F31.9 Bipolar disorder, unspecified; I10 Essential (primary) hypertension; F19.90 Other psychoactive substance use, unspecified, uncomplicated; Z98.890 Other specified postprocedural states; Z88.6 Allergy status to analgesic agent; Z88.8 Allergy status to other drugs, medicaments and biological substances; W22.8XXA Striking against or struck by other objects, initial encounter; Y93.89 Activity, other specified; Y92.89 Other specified places as the place of occurrence of the external cause; Y99.8 Other external cause status
CPT/HCPCS: 73630; 99283